=== PATIENT | male | born 1955 | race African-American/Black ===

== ENCOUNTER 2021-04-04 10:20 | Day surgery (SDC) | payer MEDICARE, MEDICAID ==
[~2021-04-04] VITALS: Ht 188 cm; Wt 84.1 kg
[2021-04-04] MEDS ORDERED: MIDAZolam 1 MG/ML 5ML VIAL ONE ×2 (10:30)
[2021-04-04] MEDS ORDERED: fentaNYL/PF 50MCG/1 ML 2ML syringe ONE (10:30)
[2021-04-04 10:37] VITALS: BP 154/85
[2021-04-04] MEDS ORDERED: FURO-150 PO (10:50)
[2021-04-04] MEDS ORDERED: KIDNEY MED PO (10:51)
[2021-04-04 12:35] VITALS: BP 150/93
[2021-04-04 12:45] VITALS: BP 144/72
[2021-04-04 12:55] VITALS: BP 156/81
[2021-04-04 13:05] VITALS: BP 138/76
== END 2021-04-04 13:25 | disposition home or self-care (01) ==
LOC: GI LAB 10:20
PROVIDERS: ATTEND Internal Medicine Gastroenterology
DX: Z09 Encounter for follow-up examination after completed treatment for conditions other than malignant neoplasm (principal); K63.5 Polyp of colon; K64.8 Other hemorrhoids; F17.210 Nicotine dependence, cigarettes, uncomplicated; N18.4 Chronic kidney disease, stage 4 (severe); Z98.890 Other specified postprocedural states; Z85.46 Personal history of malignant neoplasm of prostate; Z86.010 Personal history of colon polyps
CPT/HCPCS: 45380; 45385; C1773; G0500; J2250; J3010; J7040; Z7512; 99152; A4620

== ENCOUNTER 2021-05-30 10:56 | Emergency (ER) | payer MEDICARE, MEDICAID ==
[~2021-05-30] VITALS: Ht 188 cm; Wt 95.0 kg
[~2021-05-30 10:56] MED LIST: FURO-150 PO; KIDNEY MED PO
[2021-05-30 11:12] VITALS: BP 150/85
== END 2021-05-30 13:20 | disposition home or self-care (01) ==
LOC: ER 10:56
DX: Z20.822 Contact with and (suspected) exposure to COVID-19 (principal); R05.9 Cough, unspecified; R06.2 Wheezing; G89.29 Other chronic pain; F32.9 Major depressive disorder, single episode, unspecified; F17.200 Nicotine dependence, unspecified, uncomplicated; F12.90 Cannabis use, unspecified, uncomplicated; Z86.711 Personal history of pulmonary embolism; Z86.2 Personal history of diseases of the blood and blood-forming organs and certain disorders involving the immune mechanism; Z85.9 Personal history of malignant neoplasm, unspecified; Z98.890 Other specified postprocedural states; Z72.89 Other problems related to lifestyle; Z56.0 Unemployment, unspecified; Z79.899 Other long term (current) drug therapy
CPT/HCPCS: 36415; 99283; U0003; U0005

== ENCOUNTER 2024-01-31 14:35 | Emergency (ER) | payer BC, MEDICAID ==
[~2024-01-31] VITALS: Ht 190.5 cm; Wt 88.7 kg
[2024-01-31 15:24] LABS: BASOPHILS % (AUTO) 0.2 % (0-1); EOSINOPHILS # (AUTO) 0.1 X10'3 (0-0.9); EOSINOPHILS % (AUTO) 2.7 % (0-6); HEMATOCRIT 35.6 % (42.0-52.0); HEMOGLOBIN 11.8 g/dl (14.0-17.9); LYMPHOCYTES # (AUTO) 0.4 X10'3 (1.1-4.8); LYMPHOCYTES % (AUTO) 8.7 % (21-51); MEAN CORPUSCULAR HEMOGLOBIN 29.3 PG (27.0-31.0); MEAN CORPUSCULAR VOLUME 88.7 FL (78-98); MEAN PLATELET VOLUME 6.6 FL (7.4-10.4); MONOCYTES # (AUTO) 0.8 X10'3 (0-0.9); MONOCYTES % (AUTO) 17.6 % (2-12); NEUTROPHILS # (AUTO) 3.1 X10'3 (1.8-7.7); NEUTROPHILS % (AUTO) 70.8 % (42-75); PLATELET COUNT 261 X10'3 (140-440); RED BLOOD COUNT 4.01 X10'6 (4.70-6.10); WHITE BLOOD COUNT 4.4 X10'3 (4.5-11.0)
[2024-01-31 16:02] LABS: ALANINE AMINOTRANSFERASE 17 U/L (12-78); ALBUMIN 2.3 G/DL (3.4-5.0); ALBUMIN/GLOBULIN RATIO 0.5 (1.1-1.5); ALKALINE PHOSPHATASE 64 IU/L (46-116); ANION GAP 8 (8-16); ASPARTATE AMINO TRANSFERASE 12 U/L (10-37); BILIRUBIN,TOTAL 0.4 MG/DL (0.1-1.0); BLOOD UREA NITROGEN 15 MG/DL (7-18); BUN/CREATININE RATIO 7.3 (10.0-20.0); CALCIUM 8.7 MG/DL (8.5-10.1); CHLORIDE 102 MMOL/L (99-107); CREATININE 2.05 MG/DL (0.60-1.10); GLUCOSE 123 MG/DL (70-104); POTASSIUM 4.2 MMOL/L (3.5-5.1); SODIUM 134 MMOL/L (135-145); TOTAL CARBON DIOXIDE 24.4 MMOL/L (24-32); TOTAL PROTEIN 6.7 G/DL (6.4-8.2); eCRCL 42 ML/MIN; eGFR 40 ML/MIN
[2024-01-31 16:04] LABS: LIPASE 11 U/L (16-77); PRO BRAIN NATRIURETIC PEPTIDE 2005 PG/ML (0-125)
[2024-01-31 18:27] LABS: BILIRUBIN,URINE NEGATIVE (Neg); CLARITY,URINE CLOUDY (Clear); COLOR,URINE YELLOW (Yellow); GLUCOSE, URINE NEGATIVE (Neg); KETONES,URINE NEGATIVE (Neg); LEUKOCYTE ESTERASE ,URINE MODERATE (Neg); NITRITES, URINE POSITIVE (Neg); OCCULT BLOOD,URINE MODERATE (Neg); PROTEIN,URINE 100 mg/dl (Neg)
[2024-01-31 18:33] LABS: UA COLLECTION TYPE VOIDED; WBC,URINE TNTC /HPF (0-4)
[2024-01-31 18:34] LABS: BACTERIA,URINE 3+ /HPF (Neg); SQUAMOUS EPITHELIAL CELL,UR FEW /LPF (FEW); TRANSITIONAL EPI CELLS,URINE FEW /HPF
[2024-01-31] MEDS ORDERED: PANT-47 PO (18:34)
[2024-01-31] MEDS ORDERED: CEFU250T95 PO (18:52)
[2024-01-31 19:20] VITALS: BP 165/85; PULSE 84; RESP 16; TEMP 98.2; O2SAT 97
== END 2024-01-31 19:22 | disposition home or self-care (01) ==
LOC: ER 14:36
DX: K29.70 Gastritis, unspecified, without bleeding (principal); R10.12 Left upper quadrant pain; I38 Endocarditis, valve unspecified; E88.09 Other disorders of plasma-protein metabolism, not elsewhere classified; N39.0 Urinary tract infection, site not specified; N28.9 Disorder of kidney and ureter, unspecified; R63.4 Abnormal weight loss; F12.90 Cannabis use, unspecified, uncomplicated; Z91.018 Allergy to other foods; Z79.899 Other long term (current) drug therapy; Z79.2 Long term (current) use of antibiotics
CPT/HCPCS: 36415; 71045; 74176; 80053; 81001; 83690; 83880; 84484; 85025; 87077; 87088; 87186; 93005; 99285

== ENCOUNTER 2024-06-25 18:59 | Emergency (ER) | payer BC, MEDICAID ==
[~2024-06-25] VITALS: Ht 188 cm; Wt 88.5 kg
[~2024-06-25 18:59] MED LIST changes: +PANT-47 PO
[2024-06-25 19:44] LABS: EOSINOPHILS # (AUTO) 0.1 X10'3 (0-0.9); EOSINOPHILS % (AUTO) 4.2 % (0-6); HEMATOCRIT 41.1 % (42.0-52.0); HEMOGLOBIN 13.4 g/dl (14.0-17.9); LYMPHOCYTES # (AUTO) 0.9 X10'3 (1.1-4.8); LYMPHOCYTES % (AUTO) 28.9 % (21-51); MEAN CORPUSCULAR HEMOGLOBIN 28.5 PG (27.0-31.0); MEAN CORPUSCULAR HGB CONC 32.5 g/dL (33.0-36.5); MEAN CORPUSCULAR VOLUME 87.6 FL (78-98); MEAN PLATELET VOLUME 7.2 FL (7.4-10.4); MONOCYTES # (AUTO) 0.5 X10'3 (0-0.9); MONOCYTES % (AUTO) 16.8 % (2-12); NEUTROPHILS # (AUTO) 1.5 X10'3 (1.8-7.7); NEUTROPHILS % (AUTO) 49.1 % (42-75); PLATELET COUNT 131 X10'3 (140-440); RED BLOOD COUNT 4.69 X10'6 (4.70-6.10); RED CELL DISTRIBUTION WIDTH 14.8 % (11.5-14.5); WHITE BLOOD COUNT 3.1 X10'3 (4.5-11.0)
[2024-06-25 19:45] VITALS: PULSE 67
[2024-06-25] MEDS ORDERED: APIX5TAB3 PO (19:54)
[2024-06-25 20:03] LABS: ALANINE AMINOTRANSFERASE 12 U/L (12-78); ALBUMIN 3.2 G/DL (3.4-5.0); ALBUMIN/GLOBULIN RATIO 0.9 (1.1-1.5); ALKALINE PHOSPHATASE 63 IU/L (46-116); ANION GAP 4 (8-16); ASPARTATE AMINO TRANSFERASE 13 U/L (10-37); BILIRUBIN,TOTAL 0.4 MG/DL (0.1-1.0); BLOOD UREA NITROGEN 20 MG/DL (7-18); BUN/CREATININE RATIO 7.7 (10.0-20.0); CALCIUM 9.3 MG/DL (8.5-10.1); CHLORIDE 105 MMOL/L (99-107); CREATININE 2.59 MG/DL (0.60-1.10); GLUCOSE 91 MG/DL (70-104); LIPASE 20 U/L (16-77); POTASSIUM 4.2 MMOL/L (3.5-5.1); SODIUM 140 MMOL/L (135-145); TOTAL CARBON DIOXIDE 31.1 MMOL/L (24-32); TOTAL PROTEIN 6.6 G/DL (6.4-8.2); eCRCL 33 ML/MIN; eGFR 30 ML/MIN
[2024-06-25 20:04] LABS: TOTAL CELLS COUNTED 100
[2024-06-25 20:06] LABS: PLATELET ESTIMATE NORMAL
[2024-06-25] MEDS ORDERED: OMEP40CA21 PO (20:28)
[2024-06-25] MEDS: ondansetron/PF 4mg/2ml inj IV ONE (20:54)
[2024-06-25 20:55] VITALS: BP 162/76; RESP 16; TEMP 98.1; O2SAT 97
== END 2024-06-25 20:58 | disposition home or self-care (01) ==
LOC: ER 19:00
DX: N13.8 Other obstructive and reflux uropathy (principal); N18.9 Chronic kidney disease, unspecified; G89.29 Other chronic pain; F32.A Depression, unspecified; F12.90 Cannabis use, unspecified, uncomplicated; Z56.0 Unemployment, unspecified; Z98.890 Other specified postprocedural states; Z72.89 Other problems related to lifestyle; Z79.899 Other long term (current) drug therapy; Z86.711 Personal history of pulmonary embolism
CPT/HCPCS: 36415; 80053; 83690; 85007; 85025; 99283